=== PATIENT | female | born 1950 | race Caucasian/White ===

== ENCOUNTER 2017-03-22 03:31 | Inpatient (IN) | payer MEDICARE ==
[~2017-03-22] VITALS: Ht 170.2 cm; Wt 64.2 kg
[2017-03-22] VITALS (253 sets, daily range): BP systolic 101–160; BP diastolic 51–125; PULSE 58–78; TEMP 97.1–98.4; O2SAT 97–100
[2017-03-22 04:03] LABS: BASO # 0.1 (0.0-0.2); BASO % 1.1 % (0.0-2.0); EOS # 0.4 (0.0-0.7); EOS % 4.2 % (0-4.0); GRAN % 41.1 % (42.2-75.2); HEMATOCRIT 38.4 % (37.0-47.0); HEMOGLOBIN 13.3 g/dl (12.5-16.0); LYMPH # 4.4 (1.2-3.4); MEAN CELL VOLUME 88 fl (80.0-100.0); MEAN CORPUSCULAR HEMOGLOBIN 31 pg (27.0-31.0); MEAN CORPUSCULAR HGB CONC 35 g/dl (33.0-37.0); MEAN PLATELET VOLUME 11.3 fl (7.4-10.4); MONO # 0.8 (0.1-0.6); MONO % 8.4 % (1.7-9.3); PLATELET COUNT 234 K/mm3 (130-400); RED BLOOD COUNT 4.35 M/mm3 (4.10-5.30); REDCELL DISTRIBUTION WIDTH-CV 12.4 % (11.5-14.5); WHITE BLOOD COUNT 9.8 K/mm3 (4.8-10.8)
[2017-03-22] MEDS ORDERED: LOPRESSOR 550 MG/TAB PO (04:06)
[2017-03-22] MEDS ORDERED: PROZAC 20MG20 MG PO (04:06)
[2017-03-22] MEDS ORDERED: LOTENSIN5 MG PO (04:06)
[2017-03-22] MEDS ORDERED: SYNTHROID 0.0.025 MG PO (04:07)
[2017-03-22] MEDS ORDERED: GLUCOPHAGE500 MG/TAB PO (04:07)
[2017-03-22] MEDS ORDERED: ASPIRIN E.C. 8181 MG PO (04:08)
[2017-03-22] MEDS ORDERED: LIPITOR 10MG10 MG PO (04:08)
[2017-03-22] MEDS ORDERED: KLONOPIN 0.5MG0.5 MG PO (04:09)
[2017-03-22 04:13] LABS: ADJUSTED CALCIUM 9.1 mg/dL (8.4-10.2); ALANINE AMINOTRANSFERASE 42 U/L (9-52); ALBUMIN 4.5 gm/dL (3.5-5.0); ALKALINE PHOSPHATASE 60 U/L (50-136); ANION GAP 16 mmol/L (7-16); BILIRUBIN,TOTAL 0.5 mg/dL (0.0-1.0); BLOOD UREA NITROGEN 14 mg/dL (7-17); CALCIUM 9.5 mg/dL (8.4-10.2); CARBON DIOXIDE 24 mmol/L (22-30); CHLORIDE 96 mmol/L (98-107); CREATININE, serum 0.78 mg/dL (0.52-1.25); GLUCOSE 179 mg/dL (74-106); POTASSIUM 3.5 mmol/L (3.4-5.0); SODIUM 137 mmol/L (137-145); TOTAL PROTEIN 7.5 gm/dL (6.4-8.2)
[2017-03-22 04:14] LABS: PROTHROMBIN TIME 10.7 SECONDS (9.7-12.8)
[2017-03-22 04:30] LABS: TROPONIN-I < 0.012 ng/mL (0.000-0.034)
[2017-03-22 06:12] LABS: MAGNESIUM 1.7 mg/dL (1.6-2.3)
[2017-03-23] VITALS (343 sets, daily range): BP systolic 115–156; BP diastolic 53–91; PULSE 55–62; TEMP 97.6–98.2; O2SAT 93–100
[2017-03-23 06:06] LABS: HEMATOCRIT 37.8 % (37.0-47.0); HEMOGLOBIN 12.8 g/dl (12.5-16.0); MEAN CELL VOLUME 90 fl (80.0-100.0); MEAN CORPUSCULAR HEMOGLOBIN 31 pg (27.0-31.0); MEAN CORPUSCULAR HGB CONC 34 g/dl (33.0-37.0); MEAN PLATELET VOLUME 11.7 fl (7.4-10.4); PLATELET COUNT 207 K/mm3 (130-400); RED BLOOD COUNT 4.19 M/mm3 (4.10-5.30); REDCELL DISTRIBUTION WIDTH-CV 12.6 % (11.5-14.5); WHITE BLOOD COUNT 11.3 K/mm3 (4.8-10.8)
[2017-03-23 06:21] LABS: CALCIUM 9.2 mg/dL (8.4-10.2); CREATININE, serum 0.73 mg/dL (0.52-1.25)
[2017-03-24 01:32] VITALS: BP 148/77; PULSE 59; TEMP 99.1
[2017-03-24 05:23] VITALS: BP 137/74; PULSE 57; TEMP 98.4
[2017-03-24 08:32] VITALS: BP 118/54; PULSE 61; TEMP 98.3
[2017-03-24 11:58] LABS: PH 7 (5-8); URINE APPEARANCE Cloudy; URINE BACTERIA Rare /hpf; URINE BILIRUBIN Negative (NEGATIVE); URINE BLOOD 2+ (NEGATIVE); URINE COLOR Yellow; URINE GLUCOSE Negative (NEGATIVE); URINE KETONE Negative (NEGATIVE); URINE RBC >50 /hpf; URINE UROBILINOGEN Negative (NEGATIVE); URINE WBC None Seen /hpf
[2017-03-24 12:15] VITALS: BP 124/69; PULSE 57; TEMP 98.2
[2017-03-24] MEDS ORDERED: BRILINTA90 MG PO (15:37)
[2017-03-24] MEDS ORDERED: NORVASC 5MG5 MG/TAB PO (15:38)
[2017-03-24] MEDS ORDERED: LIPITOR 40MG TA40 MG PO (15:38)
[2017-03-24 15:44] VITALS: BP 116/79; PULSE 58; TEMP 98.8
== END 2017-03-24 17:19 | disposition home or self-care (01) | DRG 247 ==
LOC: COL.ER 03:31 → MEDICAL 04:48 → ICU 04:48 → MEDICAL 03-23 16:58
PROVIDERS: Emergency Medicine; Internal Medicine Interventional Cardiology; Nurse Practitioner Family; Physician Assistant
PROC: 027034Z Dilation of Coronary Artery, One Artery with Drug-eluting Intraluminal Device, Percutaneous Approach (ICD-10-PCS; principal; 2017-03-22)
PROC: 4A023N7 Measurement of Cardiac Sampling and Pressure, Left Heart, Percutaneous Approach (ICD-10-PCS; 2017-03-22)
PROC: B2111ZZ Fluoroscopy of Multiple Coronary Arteries using Low Osmolar Contrast (ICD-10-PCS; 2017-03-22)
DX: I25.110 Atherosclerotic heart disease of native coronary artery with unstable angina pectoris (principal); I10 Essential (primary) hypertension; E78.5 Hyperlipidemia, unspecified; G25.81 Restless legs syndrome; E03.9 Hypothyroidism, unspecified; E11.9 Type 2 diabetes mellitus without complications; Z87.891 Personal history of nicotine dependence; Z95.5 Presence of coronary angioplasty implant and graft; Z79.4 Long term (current) use of insulin
CPT/HCPCS: 99223-AI; 99233-AI; 99239; A4315; C1725; C1760; C1769; C1874; C1887; C1894; C9600; J0583; J1650; J2250; J2270; J2405; J3010; J7030; Q9967

== ENCOUNTER → 2017-04-29 | Outpatient (CLI) | payer MEDICARE ==
[~2017-04-29] MED LIST: ASPIRIN E.C. 8181 MG PO; BRILINTA90 MG PO; GLUCOPHAGE500 MG/TAB PO; KLONOPIN 0.5MG0.5 MG PO; LIPITOR 10MG10 MG PO; LIPITOR 40MG TA40 MG PO; LOPRESSOR 550 MG/TAB PO; LOTENSIN5 MG PO; NORVASC 5MG5 MG/TAB PO; PROZAC 20MG20 MG PO; SYNTHROID 0.0.025 MG PO
== END ==
LOC: COL.LAB 11:39
PROVIDERS: Internal Medicine Interventional Cardiology
DX: E78.1 Pure hyperglyceridemia (principal)

== ENCOUNTER 2017-08-23 12:13 | Emergency (ER) | payer MEDICARE ==
[~2017-08-23] VITALS: Ht 167.6 cm; Wt 63.6 kg
[2017-08-23 12:18] VITALS: BP 158/94; PULSE 59; TEMP 97.9
== END 2017-08-23 14:07 | disposition left against medical advice (07) ==
LOC: COL.ER 12:13
DX: N93.9 Abnormal uterine and vaginal bleeding, unspecified (principal); Z79.84 Long term (current) use of oral hypoglycemic drugs; Z79.82 Long term (current) use of aspirin

== ENCOUNTER 2017-08-24 13:58 | Emergency (ER) | payer MEDICARE ==
[~2017-08-24] VITALS: Ht 167.6 cm; Wt 63.6 kg
[2017-08-24 14:05] VITALS: TEMP 97.9
[2017-08-24 17:09] LABS: BASO # 0.1 (0.0-0.2); EOS # 0.2 (0.0-0.7); EOS % 2.4 % (0-4.0); GRAN # 4.5 (1.4-6.5); GRAN % 54.3 % (42.2-75.2); HEMATOCRIT 38.8 % (37.0-47.0); HEMOGLOBIN 13.5 g/dl (12.5-16.0); LYMPH # 2.7 (1.2-3.4); LYMPH % 33.3 % (20.0-51.0); MEAN CELL VOLUME 91 fl (80.0-100.0); MEAN CORPUSCULAR HEMOGLOBIN 32 pg (27.0-31.0); MEAN CORPUSCULAR HGB CONC 35 g/dl (33.0-37.0); MONO # 0.7 (0.1-0.6); MONO % 8.9 % (1.7-9.3); PLATELET COUNT 265 K/mm3 (130-400); RED BLOOD COUNT 4.26 M/mm3 (4.10-5.30)
[2017-08-24 17:18] LABS: ALANINE AMINOTRANSFERASE 39 U/L (9-52); ALKALINE PHOSPHATASE 78 U/L (50-136); ANION GAP 11 mmol/L (7-16); AST,SGOT 31 U/L (15-37); BILIRUBIN,TOTAL 0.5 mg/dL (0.0-1.0); BLOOD UREA NITROGEN 9 mg/dL (7-17); CALCIUM 9.7 mg/dL (8.4-10.2); CARBON DIOXIDE 28 mmol/L (22-30); CHLORIDE 103 mmol/L (98-107); CREATININE, serum 0.83 mg/dL (0.52-1.25); GLUCOSE 110 mg/dL (74-106); POTASSIUM 3.4 mmol/L (3.4-5.0); SODIUM 142 mmol/L (137-145); TOTAL PROTEIN 8.4 gm/dL (6.4-8.2)
[2017-08-24 17:34] LABS: HCG,QUANTITATIVE < 2 mIU/mL (0-5)
[2017-08-24 17:43] VITALS: BP 133/91; PULSE 55
== END 2017-08-24 17:45 | disposition home or self-care (01) ==
LOC: COL.ER 13:58
PROVIDERS: Emergency Medicine
DX: N93.9 Abnormal uterine and vaginal bleeding, unspecified (principal); I10 Essential (primary) hypertension; I25.10 Atherosclerotic heart disease of native coronary artery without angina pectoris; Z87.891 Personal history of nicotine dependence; Z79.84 Long term (current) use of oral hypoglycemic drugs; Z79.82 Long term (current) use of aspirin

== ENCOUNTER 2017-11-16 23:06 | Emergency (ER) | payer MEDICARE ==
[~2017-11-16] VITALS: Ht 167.6 cm; Wt 63.5 kg
[2017-11-16 23:08] VITALS: TEMP 97.8
[2017-11-17] MEDS ORDERED: FLEXERIL5 MG PO (00:24)
[2017-11-17 00:35] VITALS: BP 160/63; PULSE 66
== END 2017-11-17 00:37 | disposition home or self-care (01) ==
LOC: COL.ER 23:06
DX: M62.838 Other muscle spasm (principal); E11.9 Type 2 diabetes mellitus without complications; I10 Essential (primary) hypertension; I25.10 Atherosclerotic heart disease of native coronary artery without angina pectoris; E78.5 Hyperlipidemia, unspecified; E03.9 Hypothyroidism, unspecified; F17.210 Nicotine dependence, cigarettes, uncomplicated; Z95.5 Presence of coronary angioplasty implant and graft; Z79.84 Long term (current) use of oral hypoglycemic drugs; Z79.82 Long term (current) use of aspirin

== ENCOUNTER 2017-11-23 14:33 | Observation (INO) | payer MEDICARE ==
[~2017-11-23] VITALS: Ht 167.6 cm; Wt 59.6 kg
[~2017-11-23 14:33] MED LIST changes: +FLEXERIL5 MG PO
[2017-11-23 17:12] LABS: BASO # 0.1 (0.0-0.2); BASO % 1.3 % (0.0-2.0); EOS # 0.2 (0.0-0.7); EOS % 3.4 % (0-4.0); GRAN # 3.6 (1.4-6.5); GRAN % 52.1 % (42.2-75.2); HEMOGLOBIN 12.9 g/dl (12.5-16.0); LYMPH # 2.3 (1.2-3.4); MEAN CELL VOLUME 91 fl (80.0-100.0); MEAN CORPUSCULAR HEMOGLOBIN 32 pg (27.0-31.0); MEAN CORPUSCULAR HGB CONC 35 g/dl (33.0-37.0); MONO # 0.7 (0.1-0.6); MONO % 10.1 % (1.7-9.3); PLATELET COUNT 228 K/mm3 (130-400); RED BLOOD COUNT 4.05 M/mm3 (4.10-5.30); REDCELL DISTRIBUTION WIDTH-CV 12.8 % (11.5-14.5)
[2017-11-23 17:13] LABS: HEMATOCRIT 36.9 % (37.0-47.0)
[2017-11-23 17:21] LABS: ANION GAP 13 mmol/L (7-16); BLOOD UREA NITROGEN 16 mg/dL (7-17); CALCIUM 9.6 mg/dL (8.4-10.2); CARBON DIOXIDE 23 mmol/L (22-30); CHLORIDE 102 mmol/L (98-107); CREATININE, serum 0.96 mg/dL (0.52-1.25); GLUCOSE 133 mg/dL (74-106); POTASSIUM 3.9 mmol/L (3.4-5.0); SODIUM 138 mmol/L (137-145)
[2017-11-23] MEDS ORDERED: NORVASC 5MG5 MG/TAB PO (17:29)
[2017-11-23] MEDS ORDERED: BRILINTA90 MG PO (17:30)
[2017-11-23 17:33] LABS: TROPONIN-I < 0.012 ng/mL (0.000-0.034)
[2017-11-23] MEDS ORDERED: MELATONIN5 M1 PO (17:38)
[2017-11-23] MEDS ORDERED: VASCEPA1 GM PO (17:39)
[2017-11-23] MEDS ORDERED: RANEXA 500MG T500 MG PO (17:39)
[2017-11-23] MEDS ORDERED: NITROSTAT0.4 MG/TAB SL (17:42)
[2017-11-23 17:58] VITALS: BP 131/82; PULSE 61; TEMP 97.7
[2017-11-23 20:00] VITALS: BP 121/64; PULSE 60; TEMP 98.2
[2017-11-24] VITALS (7 sets, daily range): BP systolic 112–145; BP diastolic 58–81; PULSE 55–60; TEMP 97–98.5
[2017-11-24] MEDS ORDERED: GLUCOPHAGE500 MG/TAB PO (16:55)
[2017-11-25 04:21] VITALS: BP 137/69; PULSE 56; TEMP 97.6
[2017-11-25 08:15] VITALS: BP 123/66; PULSE 61; TEMP 98.7
== END 2017-11-25 12:03 | disposition home or self-care (01) ==
LOC: IMCU 14:33 → ICU 16:07 → MEDICAL 11-24 12:18
PROVIDERS: Internal Medicine Interventional Cardiology
DX: M54.81 Occipital neuralgia (principal); I25.10 Atherosclerotic heart disease of native coronary artery without angina pectoris; E78.1 Pure hyperglyceridemia; R51 Headache; E03.9 Hypothyroidism, unspecified; E11.9 Type 2 diabetes mellitus without complications; J44.9 Chronic obstructive pulmonary disease, unspecified; R94.39 Abnormal result of other cardiovascular function study; I10 Essential (primary) hypertension; N93.9 Abnormal uterine and vaginal bleeding, unspecified; R53.83 Other fatigue; Z77.22 Contact with and (suspected) exposure to environmental tobacco smoke (acute) (chronic); Z87.891 Personal history of nicotine dependence; Z79.82 Long term (current) use of aspirin; Z79.84 Long term (current) use of oral hypoglycemic drugs; Z95.5 Presence of coronary angioplasty implant and graft; Z83.3 Family history of diabetes mellitus; Z82.49 Family history of ischemic heart disease and other diseases of the circulatory system
CPT/HCPCS: A9585; G0378; G0379; J2270; J7030; J7050; Q9967

== ENCOUNTER → 2017-12-02 | Outpatient (CLI) | payer MEDICARE ==
[~2017-12-02] MED LIST changes: +MELATONIN5 M1 PO; +NITROSTAT0.4 MG/TAB SL; +RANEXA 500MG T500 MG PO; +VASCEPA1 GM PO
== END ==
LOC: COL.RAD 09:20
DX: M50.322 Other cervical disc degeneration at C5-C6 level (principal); M48.02 Spinal stenosis, cervical region

== ENCOUNTER → 2017-12-02 | Outpatient (CLI) | payer MEDICARE | LOC: MHCPAIN 08:16 | DX: G89.29 Other chronic pain (principal); M54.81 Occipital neuralgia; M54.2 Cervicalgia; Z87.891 Personal history of nicotine dependence | CPT/HCPCS: G0463 ==

== ENCOUNTER → 2017-12-04 | Outpatient (CLI) | payer MEDICARE | LOC: MHCPAIN 10:40 | DX: M54.81 Occipital neuralgia (principal) | CPT/HCPCS: J1100 ==

== ENCOUNTER 2021-12-03 12:33 | Day surgery (SDC) | payer MEDICARE ==
[~2021-12-03] VITALS: Ht 167.6 cm; Wt 62.0 kg
[2021-12-03] VITALS (289 sets, daily range): BP systolic 100–123; BP diastolic 58–76; PULSE 61–70; TEMP 97.6–98.5; O2SAT 65–100
[2021-12-03 13:45] LABS: HEMATOCRIT 37.7 % (37.0-47.0); HEMOGLOBIN 13.2 g/dl (12.5-16.0); MEAN CELL VOLUME 86 fl (80.0-100.0); MEAN CORPUSCULAR HEMOGLOBIN 30 pg (27-31); MEAN CORPUSCULAR HGB CONC 35 g/dl (33.0-37.0); MEAN PLATELET VOLUME 10.5 fl (7.4-10.4); PLATELET COUNT 260 K/mm3 (130-400); RED BLOOD COUNT 4.41 M/mm3 (4.10-5.30); REDCELL DISTRIBUTION WIDTH-CV 13.2 % (11.5-14.5)
[2021-12-03 13:53] LABS: INR 1.2 (0.8-3.0); PROTHROMBIN TIME 13.5 SECONDS (9.7-12.8)
[2021-12-03 13:55] LABS: PARTIAL THROMBOPLASTIN TIME 30.6 SECONDS (26.0-37.0)
[2021-12-03] MEDS ORDERED: RANEXA 500MG T500 MG PO (13:55)
[2021-12-03] MEDS ORDERED: ISORDIL TITRADO30 MG PO (13:55)
--- NOTE | 2021-12-03 13:59 | NUR ---
Initial visit; Patient thanked Director Of Services for offering comfort, reassurance and God's blessings prior to her surgical procedure and rapid and thorough healing.
[2021-12-03 14:00] LABS: CREATININE, serum 1.35 mg/dL (0.57-1.11); POTASSIUM 3.9 mmol/L (3.5-4.5)
--- NOTE | 2021-12-03 15:14 | NUR ---
PATIENT ALERT AND ORIENTED, NO REPORTS OF CHEST PAIN OR DISCOMFORT. NO FAMILY HERE BUT PATIENT REPORTS THAT SHE CAN CALL HER FOR RIDE LATER IF NEEDS BE. CONSENT VERIFIED WITH PATIENT. SEE MERGE FOR [employer] OPERATOR DETAILS INCLUDING HEMODYNAMIC MONITORING WELL MEDICATION ADMINISTRATION
--- NOTE | 2021-12-03 19:15 | NUR ---
Received report from BRIDGER Craig.
--- NOTE | 2021-12-03 19:15 | NUR ---
Patient resting quietly in bed watching television. Patient is alert and oriented; vitals within normal limits. She denies any pain or discomfort. Heparin and Integrillin drips infusing at this time, see IV drip titrations. Scant drainage noted to the right radial cath access site. Site is soft and without hematoma formation. Per report received from BRIDGER Craig, TR band initially inflated with 20mL of air. Kiara reports removing 3mL of air at approximately 1850. Site is cleaned, and no new drainage is noted. Just proximal to TR band, two puncture albert noted to skin. Area is without bruising, however, a small hematoma is felt. Manual pressure applied to site, and swelling is noted to decrease significantly. Arm board is in place and education regarding limiting application of pressure to extremitiy is reinforced.
[2021-12-04] VITALS (514 sets, daily range): BP systolic 107–126; BP diastolic 59–73; PULSE 66–75; TEMP 97.9–98.4; O2SAT 91–99
[2021-12-04 04:39] LABS: BASO # 0.1 K/mm3 (0.0-0.2); BASO % 1.1 % (0.0-2.0); EOS # 0.3 K/mm3 (0.0-0.7); GRAN # 5.4 K/mm3 (1.4-6.5); GRAN % 56.8 % (42.2-75.2); HEMOGLOBIN 12.1 g/dl (12.5-16.0); LYMPH # 2.9 K/mm3 (1.2-3.4); LYMPH % 30.3 % (20.0-51.0); MEAN CELL VOLUME 86 fl (80.0-100.0); MEAN CORPUSCULAR HEMOGLOBIN 30 pg (27-31); MEAN CORPUSCULAR HGB CONC 35 g/dl (33.0-37.0); MEAN PLATELET VOLUME 10.9 fl (7.4-10.4); MONO # 0.8 K/mm3 (0.1-0.6); MONO % 8.6 % (1.7-9.3); PLATELET COUNT 252 K/mm3 (130-400); RED BLOOD COUNT 4.07 M/mm3 (4.10-5.30); REDCELL DISTRIBUTION WIDTH-CV 13.3 % (11.5-14.5)
[2021-12-04 04:41] LABS: HEMATOCRIT 35.1 % (37.0-47.0)
[2021-12-04 05:05] LABS: CALCIUM 8.6 mg/dL (8.4-10.2); CREATININE, serum 0.89 mg/dL (0.57-1.11); POTASSIUM 3.2 mmol/L (3.5-4.5)
[2021-12-04 07:16] LABS: CHOLESTEROL RISK RATIO 3.8
--- NOTE | 2021-12-04 08:00 | NUR ---
PATIENT RESTING COMFORTABLY IN BED NOTED HEMATOMA TO WRIST ABOVE RT RADIAL SITE AND TR BAND, SOFT AND NON TENDER NO ECCHYMOSIS NOTED AT THIS TIME TO SITE, NO COMPLAINTS VOICED AT THIS TIME. TR BAND DEFLATED BUT IN PLACE DUE TO POTENTIAL FOR BLEEDING SECONDARY TO RECENT DC OF HEPARIN AND INTEGRILIN AT 0430.
--- NOTE | 2021-12-04 09:35 | NUR ---
Staff reviewed Phase 1 cardiac rehab education with patient - cath site care, monitoring for infection, and when to call the DR. Staff also reviewed CVD risk factors and ways to modify. Pt verbalized undestsanding. Pt declined cardiac rehab at this time. STaff will send note to PCP to notify.
[2021-12-04] MEDS ORDERED: GLUCOPHAGE500 MG/TAB PO (09:49)
--- NOTE | 2021-12-04 11:15 | NUR ---
REVIEWED WITH PATIENT ALL DISCHARGE INSTRUCTIONS, EDUCATION, MEDICATION INCLUDING CHANGES TO MEDICATIONS, AND FOLLOW UP APPOINTMENTS, ENCOURAGED TO PLACE CARDIAC STENT CARD IN [place] OR SAFE PLACE THAT IS EASILY ACCESSIBLE. PATIENT GETTING DRESSED AND WILL CALL HER FOR A RIDE.
--- NOTE | 2021-12-04 11:35 | NUR ---
PATIENT DISCHARGED FROM FACILITY ASSISTED TO INTO CAR WITH AT THIS TIME
== END 2021-12-04 11:35 | disposition home or self-care (01) ==
LOC: COL.CAR 12:33 → ICU 18:27 → COL.CAR 12-04 11:35
PROVIDERS: Internal Medicine Interventional Cardiology; Nurse Practitioner
DX: I25.119 Atherosclerotic heart disease of native coronary artery with unspecified angina pectoris (principal); R94.39 Abnormal result of other cardiovascular function study; I10 Essential (primary) hypertension; I73.9 Peripheral vascular disease, unspecified; E78.5 Hyperlipidemia, unspecified; T14.8XXA Other injury of unspecified body region, initial encounter; Z87.891 Personal history of nicotine dependence; Z95.5 Presence of coronary angioplasty implant and graft
CPT/HCPCS: OP; C1725; C1769; C1874; C1887; C9600; J0583; J1200; J1327; J1644; J3010; Q9967

== ENCOUNTER → 2022-05-14 | Outpatient (CLI) | payer MEDICARE ==
[~2022-05-14] MED LIST changes: +ISORDIL TITRADO30 MG PO
== END ==
LOC: COL.RAD 09:00
DX: G31.9 Degenerative disease of nervous system, unspecified (principal)

== ENCOUNTER 2022-10-10 23:40 | Emergency (ER) | payer MEDICARE ==
[~2022-10-10] VITALS: Ht 167.6 cm; Wt 60.9 kg
[2022-10-11] MEDS ORDERED: NORCO 325 MG-51 TAB PO (01:22)
[2022-10-11 01:38] VITALS: BP 126/96; PULSE 71
== END 2022-10-11 01:42 | disposition home or self-care (01) ==
LOC: COL.ER 23:40
DX: S01.81XA Laceration without foreign body of other part of head, initial encounter (principal); S01.112A Laceration without foreign body of left eyelid and periocular area, initial encounter; M25.512 Pain in left shoulder; M25.511 Pain in right shoulder; Z23 Encounter for immunization; W18.30XA Fall on same level, unspecified, initial encounter

== ENCOUNTER → 2022-10-14 | Outpatient (CLI) | payer MEDICARE ==
[~2022-10-14] MED LIST changes: +NORCO 325 MG-51 TAB PO
[2022-10-14 15:18] LABS: HEMOGLOBIN 12.7 g/dl (12.5-16.0); MEAN CELL VOLUME 88 fl (80.0-100.0); MEAN CORPUSCULAR HEMOGLOBIN 30 pg (27-31); MEAN CORPUSCULAR HGB CONC 35 g/dl (33.0-37.0); MEAN PLATELET VOLUME 10.7 fl (7.4-10.4); PLATELET COUNT 296 K/mm3 (130-400); REDCELL DISTRIBUTION WIDTH-CV 13.3 % (11.5-14.5)
[2022-10-14 15:21] LABS: HEMATOCRIT 36.8 % (37.0-47.0)
[2022-10-14 15:39] LABS: ALANINE AMINOTRANSFERASE 25 U/L (0-55); ALBUMIN 4.1 gm/dL (3.4-4.8); ALKALINE PHOSPHATASE 57 U/L (40-150); ANION GAP 12 mmol/L (7-16); AST,SGOT 22 U/L (5-34); BILIRUBIN,TOTAL 0.5 mg/dL (0.2-1.2); BLOOD UREA NITROGEN 13 mg/dL (10-20); CALCIUM 9.9 mg/dL (8.4-10.2); CARBON DIOXIDE 23 mmol/L (23-31); CHLORIDE 103 mmol/L (98-107); CREATININE, serum 0.85 mg/dL (0.57-1.11); GLUCOSE 154 mg/dL (70-99); SODIUM 138 mmol/L (136-145); TOTAL PROTEIN 7.9 gm/dL (6.2-8.1)
[2022-10-14 15:48] LABS: TROPONIN-I < 0.010 ng/mL (0.00-0.033)
== END ==
LOC: COL.LAB 14:54
PROVIDERS: Nurse Practitioner
DX: R07.89 Other chest pain (principal)

== ENCOUNTER 2023-07-31 00:50 | Emergency (ER) | payer MEDICARE ==
[~2023-07-31] VITALS: Ht 167.6 cm; Wt 57.7 kg
[2023-07-31 01:52] LABS: BASO # 0.1 K/mm3 (0.0-0.2); BASO % 0.9 % (0.0-2.0); EOS # 0.3 K/mm3 (0.0-0.7); EOS % 2.7 % (0.0-4.0); GRAN # 7.2 K/mm3 (1.4-6.5); GRAN % 65.8 % (42.2-75.2); HEMATOCRIT 40.4 % (37.0-47.0); HEMOGLOBIN 13.6 g/dl (12.5-16.0); LYMPH # 2.5 K/mm3 (1.2-3.4); MEAN CELL VOLUME 88 fl (80.0-100.0); MEAN CORPUSCULAR HEMOGLOBIN 30 pg (27-31); MEAN CORPUSCULAR HGB CONC 34 g/dl (33.0-37.0); MEAN PLATELET VOLUME 10.1 fl (7.4-10.4); MONO # 0.8 K/mm3 (0.1-0.6); MONO % 7.2 % (1.7-9.3); PLATELET COUNT 254 K/mm3 (130-400); REDCELL DISTRIBUTION WIDTH-CV 13.9 % (11.5-14.5)
[2023-07-31 02:07] LABS: INR 1.1 (0.8-3.0); PROTHROMBIN TIME 11.5 SECONDS (9.7-12.8)
[2023-07-31 02:09] LABS: ALANINE AMINOTRANSFERASE 24 U/L (0-55); ALBUMIN 3.6 gm/dL (3.4-4.8); ALKALINE PHOSPHATASE 57 U/L (40-150); ANION GAP 11 mmol/L (7-16); AST,SGOT 35 U/L (5-34); BILIRUBIN,TOTAL 0.6 mg/dL (0.2-1.2); BLOOD UREA NITROGEN 8 mg/dL (10-20); CALCIUM 9.1 mg/dL (8.4-10.2); CARBON DIOXIDE 24 mmol/L (23-31); CHLORIDE 105 mmol/L (98-107); CREATININE, serum 0.85 mg/dL (0.57-1.11); GLUCOSE 200 mg/dL (70-99); PARTIAL THROMBOPLASTIN TIME 29.9 SECONDS (26.0-37.0); POTASSIUM 3.6 mmol/L (3.5-4.5); SODIUM 140 mmol/L (136-145); TOTAL PROTEIN 6.8 gm/dL (6.2-8.1)
[2023-07-31 02:30] LABS: THYROID STIMULATING HORMONE 1.988 uIU/mL (0.350-4.940)
[2023-07-31 02:31] LABS: TROPONIN-I < 0.010 ng/mL (0.00-0.033)
[2023-07-31 03:06] LABS: COLLECTION METHOD CLEAN CATCH
[2023-07-31 03:14] LABS: PH 5.5 (5.0-8.5); URINE APPEARANCE Clear (CLEAR/HAZY); URINE COLOR Yellow (YELLOW); URINE GLUCOSE TRACE (NEGATIVE); URINE KETONE Negative (NEGATIVE); URINE PROTEIN(semi-quant) Negative (NEGATIVE)
[2023-07-31 03:15] LABS: MUCOUS Present (NOT PRESENT); URINE BACTERIA Rare /hpf (NONE SEEN); URINE BLOOD Negative (NEGATIVE); URINE NITRATE Negative (NEGATIVE); URINE RBC 0-2 /hpf (0-2); URINE UROBILINOGEN 0.2 E.U/dL (0.2-1.0)
[2023-07-31 04:25] VITALS: TEMP 99.5
[2023-07-31 05:30] VITALS: BP 107/61; PULSE 72
[2023-07-31] MEDS ORDERED: AMOXICILLIN 8751 TAB PO (05:33)
[2023-07-31] MEDS ORDERED: TYLENOL W/COD1 UDTAB PO (05:36)
== END 2023-07-31 05:57 | disposition home or self-care (01) ==
LOC: COL.ER 00:50
PROVIDERS: Emergency Medicine
DX: S61.451A Open bite of right hand, initial encounter (principal); R53.1 Weakness; W55.01XA Bitten by cat, initial encounter
CPT/HCPCS: J2270; J2405